=== PATIENT | male | born 1985 | race Hispanic/Latino ===

== ENCOUNTER 2021-01-21 08:23 | Day surgery (SDC) | payer MEDICAID ==
[~2021-01-21] VITALS: Ht 154.9 cm; Wt 49.9 kg
[2021-01-21] VITALS (8 sets, daily range): BP systolic 98–129; BP diastolic 63–79
[~2021-01-21 08:23] MED LIST: 0.9%NACL 1000ML 1,000 ML IV ONE
[2021-01-21] MEDS ORDERED: MIDO5TAB4 PO (09:41)
[2021-01-21] MEDS ORDERED: LEVO25CA4 PO (09:41)
[2021-01-21] MEDS ORDERED: FOLI1 PO (09:41)
[2021-01-21] MEDS ORDERED: FAMO20TA8 PO (09:41)
[2021-01-21] MEDS ORDERED: QUET50TA24 PO (09:41)
[2021-01-21] MEDS ORDERED: MONT5TAB24 PO (09:41)
[2021-01-21] MEDS ORDERED: [UNRECOGNIZED DRUG - CODE] PO (09:41)
[2021-01-21] MEDS ORDERED: MIDAZOLAM HCL SYRUP 10 MG/5 ML 5ML BOTTLE ONE ×2 (10:11→10:13)
[2021-01-21] MEDS ORDERED: ONDANSETRON 4MG INJ ONE (12:22)
== END 2021-01-21 12:45 | disposition home or self-care (01) ==
LOC: ENDO 08:23 → DAH 08:23 → ENDO 12:45
PROVIDERS: ATTEND Internal Medicine Gastroenterology
DX: Z43.1 Encounter for attention to gastrostomy (principal); K21.00 Gastro-esophageal reflux disease with esophagitis, without bleeding; E05.90 Thyrotoxicosis, unspecified without thyrotoxic crisis or storm; Z88.0 Allergy status to penicillin; Z90.49 Acquired absence of other specified parts of digestive tract; Z79.890 Hormone replacement therapy; Z79.899 Other long term (current) drug therapy
CPT/HCPCS: 43235; 43762; A4215 ×2; A4221; A4222; A4223; A4606; A4620; A4663; J2405; J7030; 76000

== ENCOUNTER 2021-05-20 12:14 | Emergency (ER) | payer MEDICAID ==
[~2021-05-20] VITALS: Ht 160 cm; Wt 63.5 kg
[~2021-05-20 12:14] MED LIST changes: -0.9%NACL 1000ML 1,000 ML IV ONE; +FAMO20TA8 PO; +FOLI1 PO; +LEVO25CA4 PO; +MIDO5TAB4 PO; +MONT5TAB23 PO; +QUET50TA22 PO; +[UNRECOGNIZED DRUG - CODE] PO
[2021-05-20 13:28] LABS: BASOPHILS % (AUTO) 0.6 % (0.0-5.0); EOSINOPHILS % (AUTO) 1.2 % (0.0-8.0); HEMATOCRIT 48.1 % (42-54); LYMPHOCYTES % (AUTO) 13.2 % (21.0-51.0); MEAN CORPUSCULAR HEMOGLOBIN 32.8 pg (27.0-33.0); MEAN CORPUSCULAR HGB CONC 33.5 g/dL (32.0-36.0); MONOCYTES % (AUTO) 6.3 % (3.0-13.0); NEUTROPHILS % (AUTO) 78.5 % (40.0-77.0); PLATELET COUNT (AUTO) 222 K/uL (130-400); RED BLOOD CELL COUNT(AUTO) 4.91 MIL/uL (4.50-6.20); RED CELL DISTRIBUTION WIDTH 13.6 % (11.0-15.5); WHITE BLOOD COUNT (AUTO) 5.1 K/uL (4.8-10.8)
[2021-05-20 13:40] LABS: APPEARANCE,URINE Clear (CLEAR); BILIRUBIN,URINE Negative (NEGATIVE); COLOR,URINE Yellow (YELLOW); GLUCOSE, URINE (UA) Negative (NEGATIVE); KETONES,URINE Trace mg/dL (NEGATIVE); LEUKOCYTE ESTERASE ,URINE Negative (NEGATIVE); NITRATE,URINE Negative (NEGATIVE); OCCULT BLOOD,URINE Negative (NEGATIVE); PH,URINE 6.5 (5.0-8.0); PROTEIN,URINE Negative (NEGATIVE)
[2021-05-20 13:41] LABS: POTASSIUM 3.8 mmol/L (3.5-5.1)
[2021-05-20 13:45] LABS: ALBUMIN 3.7 g/dL (3.5-5.0); BILIRUBIN,TOTAL 0.4 mg/dL (0.2-1.0); TOTAL PROTEIN, SERUM 7.9 g/dL (6.0-8.3)
[2021-05-20] MEDS ORDERED: DIATR MEGLU/DIATRIZOATE SODIUM 30 ML BOTTLE ONE (13:46)
[2021-05-20 14:01] LABS: BACTERIA,URINE Rare /HPF (None Seen); RBC,URINE 0-1 /HPF (0-1); SQUAMOUS EPITHELIAL CELL,UR Rare /HPF (0-2); WBC,URINE 0-1 /HPF (0-1)
[2021-05-20] MEDS ORDERED: SIME40DR63 PO (14:20)
[2021-05-20 14:27] VITALS: BP 138/78
== END 2021-05-20 14:25 | disposition home or self-care (01) ==
LOC: EDH 12:41
DX: T85.848A Pain due to other internal prosthetic devices, implants and grafts, initial encounter (principal); R10.9 Unspecified abdominal pain; E07.9 Disorder of thyroid, unspecified; Z93.1 Gastrostomy status; Z88.0 Allergy status to penicillin; Q90.9 Down syndrome, unspecified; Z79.899 Other long term (current) drug therapy
CPT/HCPCS: 36415; 74018; 80053; 81001; 83690; 85025; 99284; Q9963